=== PATIENT | male | born 1975 ===

== ENCOUNTER → 2016-05-28 | Outpatient (CLI) | payer OTHER ==
--- NOTE | 2016-05-28 15:27 | DIAGNOSTIC IMAGING REPORT ---
Brain MRI WITHOUT CONTRAST HISTORY: Pain. Headache. MIGRAINES TECHNIQUE: Multiplanar multisequence MRI of the brain was performed without the use of contrast. COMPARISON STUDY: None. FINDINGS: Diffusion-weighted images show no evidence for acute ischemic process. Limited evaluation of the sella and parasellar region demonstrates a soft tissue mass measuring 1.5 x 1.1 x 1.3 cm. 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 Specific imaging of the high field scanner is recommended as follow-up. Signal characteristics of the cerebellar as well as cerebral hemispheres otherwise are unremarkable. Ventricular system is midline. Basal cisterns are unremarkable. IMPRESSION: Sellar mass measuring 1.5 x 1.1 x 1.3 cm. 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 Specific imaging of the sella and parasellar region on a high field scanner is suggested Electronically signed by: Speedy Holliday M.D. 05/28/2016 3:26 PM Dictated Date/Time: 05/28/2016 3:21 PM
== END | disposition home or self-care (01) ==
LOC: C.OPENMRI 14:15
PROVIDERS: ATTEND Family Medicine
DX: G43.909 Migraine, unspecified, not intractable, without status migrainosus (principal); R22.0 Localized swelling, mass and lump, head